=== PATIENT | female | born 1965 | race Caucasian/White ===

== ENCOUNTER 2024-03-26 15:01 | Emergency (ER) | payer SELFPAY ==
[2024-03-26 15:07] VITALS: RESP 18
[2024-03-26] MEDS: SODIUM CHLORIDE 0.9% 1,000 ML IV ONE (17:50)
[2024-03-26] MEDS: ONDANSETRON 4 MG/2 ML VIAL IVP STA (17:50)
[2024-03-26] MEDS: MORPHINE SULFATE 4 MG/ML SYRINGE IVP STA (17:50)
[2024-03-26] MEDS: PIPERACILLIN-TAZOBACTAM 3.375 GM in SODIUM CHLORIDE 0.9% 100 ML IVPB STA (17:51)
[2024-03-26 18:15] LABS: Basophils % (A) 0 %; Eosinophils # (A) 0.1 k/uL (0-0.7); Eosinophils % (A) 1 %; Lymphocytes # (A) 0.8 k/uL (1.0-4.8); Lymphocytes % (A) 10 %; MCH 31.7 pg (25.0-35.0); MCHC 33.3 g/dL (31.0-37.0); Mean Platelet Volume 7.7; Monocytes # (A) 0.5 k/uL (0-1.0); Monocytes % (A) 6 %; Neutrophils # (A) 6.7 k/uL (1.3-7.7); Neutrophils % (A) 82 %; Platelet Count 162 k/uL (150-450); RBC 6.25 m/uL (3.80-5.40); WBC 8.1 k/uL (3.8-10.6)
--- NOTE | 2024-03-26 18:19 | CT ---
EXAMINATION TYPE: CT soft tissue neck w con CT DLP: 264.3 mGycm, Automated exposure control for dose reduction was used. DATE OF EXAM: 03/26/2024 6:09 PM COMPARISON: None. CLINICAL INDICATION:Female, 58 years old with history of left sided swelling, ludwigs?; PHH, neck swe lling TECHNIQUE: Standard enhanced CT of the neck. Axial sections with coronal and sagittal reformats were obtained. Contrast used:100ml mL of Isovue 300 with IV Contrast, (None if empty) Oral contrast used: (None if empty) FINDINGS: Brain: Visualized portions are grossly unremarkable. Orbits: Unremarkable Sinuses: Grossly unremarkable. Spaces of the neck: Fat stranding changes along the subcutaneous tissues most pronounced along the le ft near a periapical lucency involving the left lower cuspid. There is fat stranding changes around t his tooth. No fluid collection identified. Prominent lymph nodes along the neck. Musculoskeletal: No acute osseous pathology. Lymph nodes: Multiple nonenlarged lymph nodes are seen along both anterior chains of the neck. Vascular structures: Visualized major arteries are patent without evidence of aneurysm. Thoracic Inlet/airway: Airway is patent. The lung apices are clear. Soft tissues/Thyroid: Thyroid and remainder of the soft tissues are unremarkable. Other: none. IMPRESSION 1. Periodontal disease with periapical lucency of the left lower incisor Fat stranding changes aroun d the left cheek. No organizing fluid collection suggest abscess. 2. Subcutaneous edema of the face and anterior neck likely secondary to #1. Fat stranding changes ar e felt to be superficial. Findings could represent early ludwigs angina. Prominent lymph nodes are pr esent also thought to be secondary to #1.
[2024-03-26 18:23] LABS: HGB 19.8 gm/dL (11.4-16.0)
[2024-03-26 18:24] LABS: ALT 14 U/L (4-34); AST 20 U/L (14-36); African American GFR (CKD) 86 (>60 ml/min/1.73 sqM); Albumin 3.8 g/dL (3.5-5.0); Alkaline Phosphatase 72 U/L (38-126); Anion Gap 6 mmol/L; Blood Urea Nitrogen 17 mg/dL (7-17); Calcium 9.2 mg/dL (8.4-10.2); Carbon Dioxide 24 mmol/L (22-30); Chloride 107 mmol/L (98-107); Glucose 109 mg/dL (74-99); HCT 59.4 % (34.0-46.0); Non-African American GFR(CKD) 75 (>60 ml/min/1.73 sqM); Potassium 3.9 mmol/L (3.5-5.1); Sodium 137 mmol/L (137-145); Total Protein 6.6 g/dL (6.3-8.2)
--- NOTE | 2024-03-26 18:58 | ED ---
General Adult HPI - General Chief complaint: Dental/Oral Stated complaint: Acute central neck swelling, dental pain Time Seen by Provider: 03/26/24 15:10 Source: patient Mode of arrival: ambulatory Limitations: no limitations - History of Present Illness Initial comments: 58-year-old female with no reported past medical history who presents emergency department reporting left-sided facial swelling. She noticed that tooth #22 was loose approximately 1.5 weeks ago however the facial swelling started last night. It has gotten significantly worse and more painful overnight. The pain radiates up into her left ear. She admits to painful swallowing. Denies any difficulty breathing. No drooling, trismus, hoarseness or stridor. She does not obtain normal dental cleanings. She denies any fevers. No nausea or vomiting. No chest pain. She has been taking Motrin and Tylenol alternating for the pain. No other alleviating, precipitating or modifying factors - Related Data Allergies Allergy/AdvReac Type Severity Reaction Status Date / Time No Known Allergies Allergy Verified 03/26/24 15:07 Review of Systems ROS Statement: Those systems with pertinent positive or pertinent negative responses have been documented in the HPI. ROS Other: All systems not noted in ROS Statement are negative. Past Medical History Past Medical History: No Reported History History of Any Multi-Drug Resistant Organisms: None Reported Past Surgical History: No Surgical Hx Reported Past Psychological History: Anxiety Smoking Status: Current every day smoker Past Alcohol Use History: None Reported Past Drug Use History: None Reported General Exam Limitations: no limitations General appearance: alert, in no apparent distress Head exam: Present: atraumatic, normocephalic, normal inspection Eye exam: Present: normal appearance, PERRL, EOMI. Absent: scleral icterus, conjunctival injection, periorbital swelling ENT exam: Present: other (Induration to the left submandibular region tracking over to the right submandibular region. There is no drooling, trismus, hoarseness or stridor. Floor of mouth is nonswollen. No tongue elevation. Tooth #22 is loose) Neck exam: Present: tenderness (induration and swelling to left side of neck) Respiratory exam: Present: normal lung sounds bilaterally. Absent: respiratory distress, wheezes, rales, rhonchi, stridor Cardiovascular Exam: Present: regular rate, normal rhythm, normal heart sounds. Absent: systolic murmur, diastolic murmur, rubs, gallop, clicks GI/Abdominal exam: Present: soft, normal bowel sounds. Absent: distended, tenderness, guarding, rebound, rigid Course Vital Signs 03/26/24 15:04 Temperature 98 F Pulse Rate 78 Respiratory 18 Rate Blood Pressure 184/86 O2 Sat by Pulse 98 Oximetry Medical Decision Making - Medical Decision Making Was pt. sent in by a medical professional or institution (, [facility], [facility], urgent care, hospital, or penitentiary...) When possible be specific @ -No Did you speak to anyone other than the patient for history (EMS, parent, family, police, friend...)? What history was obtained from this source @ -No Did you review nursing and triage notes (agree or disagree)? Why? @ -I reviewed and agree with nursing and triage notes Were old charts reviewed (outside hosp., previous admission, EMS record, old EKG, old radiological studies, urgent care reports/EKG's, penitentiary records)? Report findings @ -No old charts were reviewed Differential Diagnosis (chest pain, altered mental status, abdominal pain women, abdominal pain men, vaginal bleeding, weakness, fever, dyspnea, syncope, headache, dizziness, GI bleed, back pain, seizure, CVA, palpatations, mental health, musculoskeletal)? @ -Sialoadenitis, Ludwigs EKG interpreted by me (3pts min.). @ -Not done X-rays interpreted by me (1pt min.). @ -None done CT interpreted by me (1pt min.). @ -Yes and demonstrates early Teresa's U/S interpreted by me (1pt. min.). @ -None done What testing was considered but not performed or refused? (CT, X-rays, U/S, labs)? Why? @ -None What meds were considered but not given or refused? Why? @ -None Did you discuss the management of the patient with other professionals (professionals i.e. [facility] Romero, [facility], lab, RT, psych nurse, certified social workers in health care, data developer, teacher, real estate utilization officer, family caseworker)? Give summary @ -Spoke with Dr. Badillo at [facility] who does accept the patient Was smoking cessation discussed for >3mins.? @ -No Was critical care preformed (if so, how long)? @ -No Were there social determinants of health that impacted care today? How? (Homelessness, low income, unemployed, alcoholism, drug addiction, transportation, low edu. Level, literacy, decrease access to med. care, [facility], rehab)? @ -No Was there de-escalation of care discussed even if they declined (Discuss DNR or withdrawal of care, Hospice)? DNR status @ -No What co-morbidities impacted this encounter? (DM, HTN, Smoking, COPD, CAD, Cancer, CVA, ARF, Chemo, Hep., AIDS, mental health diagnosis, sleep apnea, morbid obesity)? @ -None Was patient admitted / discharged? Hospital course, mention meds given and route, prescriptions, significant lab abnormalities, going to OR and other p ertinent info. @ -Upon arrival patient seen and evaluated in room 28. Thorough history and physical exam was performed. IV was established and laboratory studies are conducted. Patient was initiated on Zosyn. Blood cultures not obtained due to shortage and no signs of sepsis. CT was performed which demonstrates possible early Ludwigs. Patient has clinical symptoms of Ludwigs. Patient is not capable of hospitalization at our facility due to current ENT coverage. She does require hospitalization at a facility with higher level of care. Patient was agreeable to transfer. She does choose [facility]. I spoke with Dr. Badillo who does accept patient. COBRA forms are signed. Patient is transferred in stable condition Undiagnosed new problem with uncertain prognosis? @ -No Drug Therapy requiring intensive monitoring for toxicity (Heparin, Nitro, Insulin, Cardizem)? @ -No Were any procedures done? @ -No Diagnosis/symptom? @ -Acute left neck swelling, dental infection tooth #22, early ludwigs Acute, or Chronic, or Acute on Chronic? @ -acute Uncomplicated (without systemic symptoms) or Complicated (systemic symptoms)? @ -complicated Side effects of treatment? @ -No Exacerbation, Progression, or Severe Exacerbation? @ -No Poses a threat to life or bodily function? How? (Chest pain, USA, MA, pneumonia, PE, COPD, DKA, ARF, appy, cholecystitis, CVA, Diverticulitis, Homicidal, Suicidal, threat to staff... and all critical care pts) @ -yes -untreated patient could suffer airway compromise - Lab Data Result diagrams: 03/26/24 17:45 03/26/24 17:45 Lab Results 03/26/24 03/26/24 03/26/24 Range/Units 17:45 17:45 17:45 WBC 8.1 (3.8-10.6) k/uL RBC 6.25 H (3.80-5.40) m/uL Hgb 19.8 H* (11.4-16.0) gm/dL Hct 59.4 H* (34.0-46.0) % MCV 95.0 (80.0-100.0) fL MCH 31.7 (25.0-35.0) pg MCHC 33.3 (31.0-37.0) g/dL RDW 14.0 (11.5-15.5) % Plt Count 162 (150-450) k/uL MPV 7.7 Neutrophils % 82 % Lymphocytes % 10 % Monocytes % 6 % Eosinophils % 1 % Basophils % 0 % Neutrophils # 6.7 (1.3-7.7) k/uL Lymphocytes # 0.8 L (1.0-4.8) k/uL Monocytes # 0.5 (0-1.0) k/uL Eosinophils # 0.1 (0-0.7) k/uL Basophils # 0.0 (0-0.2) k/uL Sodium 137 (137-145) mmol/L Potassium 3.9 (3.5-5.1) mmol/L Chloride 107 (98-107) mmol/L Carbon Dioxide 24 (22-30) mmol/L Anion Gap 6 mmol/L BUN 17 (7-17) mg/dL Creatinine 0.85 (0.52-1.04) mg/dL Est GFR (CKD-EPI)AfAm 86 (>60 ml/min/1.73 sqM) Est GFR (CKD-EPI)NonAf 75 (>60 ml/min/1.73 sqM) Glucose 109 H (74-99) mg/dL Plasma Lactic Acid Alex 1.1 (0.7-2.0) mmol/L Calcium 9.2 (8.4-10.2) mg/dL Total Bilirubin 1.0 (0.2-1.3) mg/dL AST 20 (14-36) U/L ALT 14 (4-34) U/L Alkaline Phosphatase 72 (38-126) U/L Total Protein 6.6 (6.3-8.2) g/dL Albumin 3.8 (3.5-5.0) g/dL Disposition Clinical Impression: Dental caries, Ludwigs angina Disposition: OTHER INSTITUTION NOT DEFINED Condition: Serious Is patient prescribed a controlled substance at d/c from ED?: No Referrals: Scottie Arroyo DO [Primary Care Provider] - 1-2 days Time of Disposition: 19:59 - Out of Hospital Transfer - Req. Specs Out of Hospital Transfer - Requested Specifics: Other Emergency Center ([facility])
[2024-03-26 20:09] VITALS: BP 187/90; PULSE 72; TEMP 98.6
[2024-03-26] MEDS: HYDROmorphone 1 MG/ML 1 ML SYRINGE IVP STA (20:28)
== END 2024-03-26 20:15 | disposition other institution (70) ==
LOC: EC 15:01
DX: K02.9 Dental caries, unspecified (principal); K12.2 Cellulitis and abscess of mouth; R22.1 Localized swelling, mass and lump, neck; F17.200 Nicotine dependence, unspecified, uncomplicated
CPT/HCPCS: 36415; 80053; 83605; 85025; 70491; 99285; 96365; 96366; 96375 ×2; J2543; J2270; J2405; Q9967